=== PATIENT | female | born 1950 | race Two or more races ===

== ENCOUNTER 2025-05-21 19:34 | Emergency (ER) | payer OTHER, SELFPAY ==
[2025-05-21 19:39] VITALS: BP 173/78; PULSE 66; TEMP 36.6; O2SAT 95; BMI 21.9
[2025-05-21 19:51] VITALS: O2SAT 95
--- NOTE | 2025-05-21 19:52 | XR_ITS ---
[facility] [place] [id number] Patient Name: BREE PAIZ MRN: [id number] date: 1950 Sex: F Assigned Patient Location: ER Current Patient Location: ED.MAIN Accession/Order Number: [id number] Exam Date: 05/21/2025 19:54 Report Date: 05/22/2025 08:19 At the request of: COLLEEN NGUYEN MD Procedure: XR chest 1V Single view chest: CLINICAL HISTORY: Cough, probable COVID COMPARISON: None FINDINGS: The heart is normal in size. The lungs are clear. The pulmonary vasculature is normal. Mediastinum and hilar regions are unremarkable. No pleural effusions are seen. Visualized bones are intact. XR/XR chest 1V IMPRESSION: NO ACUTE PROCESS. Impression dictated by: Nando Duarte Jr., D.O. 05/22/2025 8:19 AM Dictation Location: [place] [id number] Electronically authenticated by: [id number] Y Date: 05/22/2025 08:19
--- NOTE | 2025-05-21 19:52 | ED.GENADUL1 ---
HPI HPI - General Adult General Chief complaint: Weakness Stated complaint: COUGHING, WEAKNESS Time Seen by Provider: 05/21/25 19:49 Source: patient Mode of arrival: walk-in Limitations: no limitations History of Present Illness HPI narrative: 75-year-old female presented to the emergency department for cough and weakness. Her was diagnosed with COVID 2 days ago and she developed symptoms yesterday. No vomiting or fever. She feels rundown. Her cough is worse at nighttime. Related Data Home Medications ?Medication ?Instructions ?Recorded ?Confirmed lisinopril 2.5 mg tablet 2.5 mg PO DAILY 05/21/25 05/21/25 pepcid OTC 1 tab .Route DAILY 05/21/25 05/21/25 Previous Rx's ?Medication ?Instructions ?Recorded nirmatrelvir 300 mg (150 mg See Rx Instructions PO .COMPLEX 05/21/25 x2)-ritonavir 100 mg tablet,dose #30 ea pack (Paxlovid) Allergies Allergy/AdvReac Type Severity Reaction Status Date / Time ibuprofen (From Motrin) AdvReac dizzy Verified 05/21/25 19:45 tetracycline AdvReac syncope Verified 05/21/25 19:45 Review of Systems ROS Narrative A ten point review of systems is negative except as noted above. PFSH PFSH Social History Little interest or pleasure in doing things: not at all Feeling down, depressed, or hopeless: not at all Exam Narrative Exam Narrative: Nurses note and vital signs reviewed and patient is not hypoxic. General:The patient appears well and in no apparent distress.Patient is resting comfortably on cart. Skin:Warm, dry, no pallor noted.There is no rash noted. Head:Normocephalic, atraumatic Eye: Normal conjunctiva, no drainage Ears, Nose, Mouth, and Throat: oral mucosa is moist. Nares patent. Cardiovascular:Regular Rate and Rhythm Respiratory:Patient is in no distress, no accessory muscle use, lungs are clear to auscultation, no wheezing, rales or rhonchi Back:non-tender GI: Soft and nontender Musculoskeletal: The patient has no evidence of calf tenderness, no pitting edema, symmetrical pulses noted bilaterally Neurological:A&O, normal speech Psychiatric:Cooperative Constitutional Vital Signs, click to edit/add: Last Vital Signs Temp 97.8 F 05/21/25 19:39 Pulse 66 05/21/25 19:39 Resp 18 05/21/25 19:53 BP 173/78 H 05/21/25 19:39 Pulse Ox 95 05/21/25 19:53 O2 Del Method Room Air 05/21/25 19:53 Course Vital Signs Vital signs: Vital Signs Temperature 97.8 F 05/21/25 19:39 Pulse Rate 66 05/21/25 19:39 Respiratory Rate 18 05/21/25 19:39 Blood Pressure 173/78 H 05/21/25 19:39 Pulse Oximetry 95 05/21/25 19:39 Oxygen Delivery Method Room Air 05/21/25 19:39 Temperature 97.8 F 05/21/25 19:39 Pulse Rate 66 05/21/25 19:39 Respiratory Rate 18 05/21/25 19:53 Blood Pressure 173/78 H 05/21/25 19:39 Pulse Oximetry 95 05/21/25 19:53 Oxygen Delivery Method Room Air 05/21/25 19:53 Medical Decision Making MDM Narrative Medical decision making narrative: The patient has COVID and is prescribed Paxlovid. She does not require admission to the hospital. Treatment diagnosis and follow-up were discussed with the patient. Differential Diagnosis Differential Diagnosis: COVID, influenza, pneumonia, viral URI Lab Data Lab results reviewed: Yes I reviewed the patient's lab results Labs: Lab Results 05/21/25 Range/Units 19:43 Influenza Type A Ag Negative Influenza Type B Ag Negative SARS-CoV-2 Ag (CV2AG) Positive A (NEGATIVE) Imaging Data Chest x-ray: My impression: No acute findings Discharge Plan Discharge Chief Complaint: Weakness Clinical Impression: COVID-19 Patient Disposition: Home, Self-Care Time of Disposition Decision: 20:03 Condition: Good Mode of Transportation: Private Vehicle Prescriptions / Home Meds: New Paxlovid 300 mg (150 mg x 2)-100 mg tablets,dose pack See Rx Instructions .ROUTE .COMPLEX Qty: 30 0RF Rx Instructions: take TWO 150 mg tablets of nirmatrelvir with ONE 100 mg tablet of ritonavir twice daily for 5 days No Action pepcid OTC 1 tab .Route DAILY lisinopril 2.5 mg tablet 2.5 mg PO DAILY Print Language: Turkish Instructions: COVID-19 (Coronavirus Disease 2019) (ED), Face Coverings (Masks) and COVID-19 (ED), How to Recover from COVID-19 at Home (ED)
[2025-05-21 19:53] VITALS: O2SAT 95
[2025-05-21 20:00] LABS: SARS-CoV-2 Ag POSITIVE (NEGATIVE)
--- OUTSIDE RECORDS SUMMARY | 2025-05-21 20:06 | XMS_ITS | Continuity of Care Document ---
Author Organization [facility]. 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) Comments:Sphincter of Oddi dysfunction Right upper quadrant pain Comments:Right upper quadran t pain Allergies and Adverse Reactions ibuprofen(Allergy) Onset: 11-Aug-2012 Reaction:SYNCOPE Tetracycline(Allergy) Onset: 11-Aug-2012 Reaction:SYNCOPE Motrin(Allergy) Tetracaine 10 MG/ML Injectab le Solution(Allergy) Medications cholecalciferol 0.025 MG Ora l Capsule;1000 UNITS ORAL DAILY Start:05-Mar-2022 Comments:1000 UNITS PO DAILY omeprazole 40 MG Delayed Rel ease Oral Capsule;40 MILLIGRAM* ORAL DAILY Start:05-Mar-2022 Comments:40 MG PO DAILY metroNIDAZOLE 500 MG Oral Ta blet;500 MILLIGRAM* ORAL Q12 Start:13-Aug-2012 Status:Discontinued Comments:500 MG PO Q12 Protonix Iv;40 MILLIGRAM* 2m inIVPUSH DAILY Start:13-Aug-2012 Status:Discontinued Comments:40 MG 2minIVPUSH DAILY Pancrease Capsule;1 EACH ORA L C MEALS Start:13-Aug-2012 Status:Discontinued Comments:1 EACH ORAL C MEALS loperamide hydrochloride 2 M G Oral Capsule;2 MILLIGRAM* ORAL Q12H PRN Start:13-Aug-2012 Status:Discontinued Comments:2 MG PO Q12H PRN Omeprazole;20 MG Oral , TK 1 C PO QD Quantity:90 Refills:2 ORAL ELIEL Comments:20 MG Oral , TK 1 C PO QD Social History Smoking Status Never smoked tobacco Recorded: 05-Mar-2022
--- OUTSIDE RECORDS SUMMARY | 2025-05-21 20:08 | XMS_ITS | Clinical Summary ---
Author Organization Formerly [facility] Address [address] [place] [address] Care Team Providers Care Sagger Soak Name Role Phone Candida Severino MD Primary Care Provider Allergies Active Allergy Reactions Criticality Noted Date Comments [place] (Diagnostic) Other Low 07/29/2024 TESTED + Ibuprofen Other,Dizziness High 10/07/2022 PASSED OUT Tetracycline Dizziness Low 10/07/2022 Medications famotidine (Pepcid) 20 MG tablet Take 1 tablet (20 mg total) by mouth 1 (one) time each day in the morning. Active lisinopril 5 MG tablet Take 1 tablet (5 mg total) by mouth 1 (one) time each day in the morning. Active Restasis 0.05 % ophthalmic emulsion Administer 1 drop into both eyes every 12 (twelve) hours. 3 Active fluorometholone (FML) 0.1 % ophthalmic suspension Administer 1 drop into the right eye in the morning and 1 drop before bedtime. 4 Active Zirgan 0.15 % ophthalmic gel solution Apply 1 drop to right eye every night. 4 Active cetirizine (ZyrTEC) 10 MG tablet Take 1 tablet (10 mg total) by mouth every night. 3 Active gabapentin (Neurontin) 300 MG capsuleIndicati ons:Neuropathic Pain Start 1 cap at bedtime for 1 week then if tolerating well go to 1 cap BID for 1 week then if tolerating well 1 cap TID 90 capsule 5 Active Active Problems Problem Noted Date Diagnosed Date Lumbar radiculopathy 01/25/2025 Gastroesophageal reflux disease 10/07/2023 10/07/2023 Primary hypertension 10/07/2023 Polyp of colon 10/07/2023 Resolved Problems Problem Noted Date Diagnosed Date Resolved Date Acute bronchitis 10/07/2022 10/07/2023 Acute cough 10/07/2022 10/07/2023 Acute rhinosinusitis 10/07/2022 024 Encounters Date Type Department Care Team Description 03/07/2025 Telephone [facility] at [address] [place] [address] Jolene Cox MD Procedure; Reschedule 03/01/2025 10:30 AM EDT Procedure Visit [facility] at [address] [place] [address] Jolene Cox MD Lumbar radiculopathy (Primary Dx); Lumbar stenosis with neurogenic claudication; Lumbar spondylosis; Degeneration of intervertebral disc of lumbar region with lower extremity pain 03/01/2025 Telephone [facility] at [address] [address] [place] [address] Jolene Cox MD from Last 3 Months Family History Medical History Relation Name Comments No Known Problems Brother No Known Problems Cousin No Known Problems Daughter Emphysema Father No Known Problems Maternal Grandfather No Known Problems Maternal Grandmother Heart disease Mother Margarita Eli Hypertension Mother Margarita Eli Stomach cancer Mother Margarita Eli No Known Problems Other No Known Problems Paternal Grandfather No Known Problems Paternal Grandmother Diabetes Sister Esperanza Eli Lymphoma Sister Esperanza Eli No Known Problems Son Relation Name Status Comments Brother Cousin Daughter Father Maternal Grandfather Maternal Grandmother Mother Margarita Eli Other Paternal Grandfather Paternal Grandmother Sister Esperanza Eli Son Social History Tobacco Use Types Packs/Day Years Used Date Smoking Tobacco: Never Smokeless Tobacco: Never Tobacco Cessation:Counseling Given: Not Answered Alcohol Use Standard Drinks/Week Comments Never 0 (1 standard drink = 0.6 oz pur e alcohol) PHQ-2 Answer Date Recorded Patient Health Questionnaire-2 Score 0 01/22/2024 [facility] Housing Answer Date Recorded Living Situation Not on file 04/03/2023 Housing Problems Not on file 04/03/2023 [facility] Safety Answer Date Recorded Threatened Not on file 04/03/2023 Insulted Not on file 04/03/2023 Physically Hurt Not on file 04/03/2023 Scream Not on file 04/03/2023 Comments No Sex and Gender Information Value Date Recorded Sex Assigned at Not on file Legal Sex Female 7:24 AM EDT Gender Identity Not on file Sexual Orientation Not on file Last Filed Vital Signs Vital Sign Reading Time Taken Comments Blood Pressure 141/73 02/02/2025 2:26 PM EDT Pulse 61 02/02/2025 2:26 PM EDT Temperature 36.6 C (97.8 F) 02/02/2025 2:26 PM EDT Respiratory Rate 16 02/02/2025 2:26 PM EDT Oxygen Saturation 100% 02/02/2025 2:26 PM EDT Inhaled Oxygen Concentration - - Weight 51.7 kg (114 lb) 03/01/2025 9:45 AM EDT Height 149.9 cm (4' 11 ) 03/01/2025 9:45 AM EDT Body Mass Index 23.03 03/01/2025 9:45 AM EDT Plan of Treatment Health Maintenance Due Date Last Done Comments CT Colonography 1950 Cologuard 1950 FIT 1950 FOBT 1950 Medicare Annual Wellness (AWV) 1950 Sigmoidoscopy 1950 DTaP/Tdap/Td Vaccines (1 - Tdap) 1970 Pneumococcal Vaccine: 50+ Years (1 of 2 - PCV) 1970 Mammogram 1991 Zoster Vaccines (1 of 2) 2001 Respiratory Syncytial Virus (RSV) 60 years and older and/or patients (1 - Risk 60-74 years 1-dose series) 2011 Depression Screening 01/21/2025 01/22/2024 COVID-19 Vaccine (1 - season) 2025 Influenza Vaccine (#1) 2025 Diabetes Screening 01/14/2026 01/14/2025, 0 11/25/2023, 11/25/2023, Additional history exists Lipid Panel 11/24/2028 11/25/2023 Colonoscopy 12/09/2033 12/10/2023, 12/04/2023 Colorectal Cancer Screening 12/09/2033 Bone Density Scan Completed 03/31/2023, 03/31/2023 HPV Vaccines Aged Out No longer eligi ble based on patient's age to complete this topic Hepatitis A Vaccines Aged Out No long er eligible based on patient's age to complete this topic Hepatitis B Vaccines Aged Out No long er eligible based on patient's age to complete this topic Meningococcal B Vaccine Aged Out No l onger eligible based on patient's age to complete this topic Meningococcal Vaccine Aged Out No emeka rosalva eligible based on patient's age to complete this topic Respiratory Syncytial Virus (RSV) <20 months Aged Out No longer eligible based on patient's age to complete this topic Medical Devices Implanted Type Area Lyric Writer Device Identifier Shelf Expiration Date Model / Serial / Lot Ortho Implants Ortho Implants Right: First Toe Procedures Procedure Name Priority Date/Time Associated Diagnosis Comments COLONOSCOPY Routine 12/10/2023 7:52 AM EDT Personal history of colonic polyps COMPREHENSIVE METABOLIC PANEL Routine 11/25/2023 12:00 AM EDT LIPID PANEL Routine 11/25/2023 12:00 AM EDT from Last 3 Months or Most Recently Relevant to Health Maintenance Results * Colonoscopy (12/10/2023 7:52 AM EDT) Anatomical Region Laterality Modality Endoscopy 12/10/2023 9:54 AM EDT Narrative 12/10/2023 10:29 AM EDT Patient Name: Antonette Connell Procedure Date No Time: 12/10/2023 Date of : 1950 Admit Type: Outpatient Age: 73 Gender: Female Attending MD: MELISSA AGUSTIN MD Instrument Name: Colonoscope Note Status: Finalized Grafts or Implants: None Providers: MELISSA AGUSTIN MD (Doctor) Indication(s): High risk colon cancer surveillance: Personal history of colonic polyps, Last colonoscopy 3 years ago Impression(s): - One 3 to 4 mm polyp in the proximal transverse colon, removed with a cold snare. Resected and retrieved. - One 6 mm polyp in the distal sigmoid colon, removed with a cold snare. Resected and retrieved. - Mild diverticulosis in the sigmoid colon. - Internal hemorrhoids. Recommendation: - Patient has a contact number available for emergencies. The signs and symptoms of potential delayed complications were discussed with the patient. Return to normal activities tomorrow. Written discharge instructions were provided to the patient. - Resume previous diet. - Continue present medications. - Await pathology results. - Repeat colonoscopy is recommended. The colonoscopy date will be determined after pathology results from today's exam become available for review. - Return to my office. Procedure: Colonoscopy Procedure: Pre-Anesthesia Assessment: - Prior to the procedure, a History and Physical was performed, and patient medications and allergies were reviewed. The patient's tolerance of previous anesthesia was also reviewed. The risks and benefits of the procedure and the sedation options and risks were discussed with the patient. All questions were answered, and informed consent was obtained. Prior Anticoagulants: The patient has taken no anticoagulant or antiplatelet agents. ASA Grade Assessment: II - A patient with mild systemic disease. After reviewing the risks and benefits, the patient was deemed in satisfactory condition to undergo the procedure. Bus Van Driver: Refer to the IntraOP nursing note. After I obtained informed consent, the scope was passed under direct vision. Throughout the procedure, the patient's blood pressure, pulse, and oxygen saturations were monitored continuously. The was introduced through the anus and advanced to the cecum, identified by appendiceal orifice and ileocecal valve. The quality of the bowel preparation was good. The ileocecal valve, appendiceal orifice, and rectum were photographed. The colonoscopy was performed without difficulty. The patient tolerated the procedure well. The quality of the bowel preparation was evaluated using the BBPS ([place] Bowel Preparation Scale) with scores of: Right Colon = 3, Transverse Colon = 3 and Left Colon = 3 (entire mucosa seen well with no residual staining, small fragments of stool or opaque liquid). The total BBPS score equals 9. Findings: Retroflexion in the right colon was performed. A 3 to 4 mm polyp was found in the proximal transverse colon. The polyp was sessile. The polyp was removed with a cold snare. Resection and retrieval were complete. A 6 mm polyp was found in the distal sigmoid colon. The polyp was sessile. The polyp was removed with a cold snare. Resection and retrieval were complete. Diverticula were found in the sigmoid colon. Internal hemorrhoids were found. The hemorrhoids were small. Estimated Blood Loss: Estimated blood loss: none. Anesthesia Type: Monitored Anesthesia Care Complications: No immediate complications. Procedure Code(s): --- Professional --- 83448, Colonoscopy, flexible; with removal of tumor(s), polyp(s), or other lesion(s) by snare technique Diagnosis Code(s): --- Professional --- Z86.010, Personal history of colonic polyps D12.3, Benign neoplasm of transverse colon (hepatic flexure or splenic flexure) D12.5, Benign neoplasm of sigmoid colon K64.8, Other hemorrhoids K57.30, Diverticulosis of large intestine without perforation or abscess without bleeding CPT copyright 2020 [employer]. All rights reserved. The codes documented in this report are preliminary and upon front end loader driver review may be revised to meet current compliance requirements. Attending Participation: I personally performed the entire procedure. MD MELISSA Garcia MD 12/10/2023 10:29:03 AM Number of Addenda: 0 Procedure Note Melissa Agustin MD - 12/10/2023 Patient Name: Antonette Connell Procedure Date No Time: 12/10/2023 Date of : 1950 Admit Type: Outpatient Age: 73 Gender: Female Attending MD: MELISSA AGUSTIN MD Instrument Name: Colonoscope Note Status: Finalized Grafts or Implants: None Providers: MELISSA AGUSTIN MD (Doctor) Indication(s): High risk colon cancer surveillance: Personal history of colonicpolyps, Last colonoscopy 3 years ago Impression(s): - One 3 to 4 mm polyp in the proximal transverse colon, removed witha cold snare. Resected and retrieved. - One 6 mm polyp in the distal sigmoid colon, removed with a coldsnare. Resected and retrieved. - Mild diverticulosis in the sigmoid colon. - Internal hemorrhoids. Recommendation: - Patient has a contact number available for emergencies. The signs and symptoms of potential delayed complications were discussed with thepatient. Return to normal activities tomorrow. Written discharge instructions were provided to thepatient. - Resume previous diet. - Continue present medications. - Await pathology results. - Repeat colonoscopy is recommended. Thecolonoscopy date will be determined after pathology resultsfrom today's exam become available for review. - Return to my office. Procedure: Colonoscopy Procedure: Pre-Anesthesia Assessment: - Prior to the procedure, a History and Physical was performed, and patient medications and allergies were reviewed. The patient'stolerance of previous anesthesia was also reviewed. The risks and benefits ofthe procedure and the sedation options and risks were discussed with the patient. All questions were answered, and informed consent wasobtained. Prior Anticoagulants: The patient has taken no anticoagulant or antiplatelet agents. ASA Grade Assessment: II - A patient with mild systemic disease. After reviewing the risks and benefits, the patient was deemed in satisfactory condition to undergo the procedure. Bus Van Driver: Refer to the IntraOP nursing note. After I obtained informed consent, the scope was passed under direct vision. Throughout the procedure, the patient's blood pressure,pulse, and oxygen saturations were monitored continuously. The wasintroduced through the anus and advanced to the cecum, identified by appendiceal orifice and ileocecal valve. The quality of the bowel preparation was good. The ileocecal valve, appendiceal orifice, and rectum were photographed. The colonoscopy was performed without difficulty. The patient tolerated the procedure well. The quality of the bowel preparation was evaluated using the BBPS ([place] Bowel Preparation Scale) with scores of: Right Colon = 3, Transverse Colon = 3 and Left Colon = 3 (entire mucosa seen well with no residual staining, small fragments of stool or opaque liquid). The total BBPS score equals9. Findings: Retroflexion in the right colon was performed. A 3 to 4 mm polyp was found in the proximal transverse colon. Thepolyp was sessile. The polyp was removed with a cold snare. Resection and retrieval were complete. A 6 mm polyp was found in the distal sigmoid colon. The polyp was sessile. The polyp was removed with a cold snare. Resection and retrieval were complete. Diverticula were found in the sigmoid colon. Internal hemorrhoids were found. The hemorrhoids were small. Estimated Blood Loss: Estimated blood loss: none. Anesthesia Type: Monitored Anesthesia Care Complications: No immediate complications. Procedure Code(s): --- Professional --- 32895, Colonoscopy, flexible; with removal of tumor(s), polyp(s), or other lesion(s) by snare technique Diagnosis Code(s): --- Professional --- Z86.010, Personal history of colonic polyps D12.3, Benign neoplasm of transverse colon (hepatic flexure or splenic flexure) D12.5, Benign neoplasm of sigmoid colon K64.8, Other hemorrhoids K57.30, Diverticulosis of large intestine without perforation or abscess without bleeding CPT copyright 2020 [employer]. All rights reserved. The codes documented in this report are preliminary and upon front end loader driver reviewmay be revised to meet current compliance requirements. Attending Participation: I personally performed the entire procedure. MD MELISSA Garcia MD 12/10/2023 10:29:03 AM Number of Addenda: 0 Melissa Agustin MD ENDOSCOPY PROCEDU RE ORDERABLES Final Result * Lipid Panel (11/25/2023 12:00 AM EDT) Cholesterol, Total 182 <200 mg/dL [facility] HDL Cholesterol 70 > OR = 50 mg/dL [facility] Triglycerides 120 <150 mg/dL [facility] LDL Cholesterol 90 mg/dL (calc) [facility] Comment: Reference range: <100 Desirable range <100 mg/dL for primary prevention; <70 mg/dL for patients with CHD or diabetic patients with > or = 2 CHD risk factors. LDL-C is now calculated using the Rufino calculation, which is a validated novel method providing better accuracy than the Friedewald equation in the estimation of LDL-C. Alli AGUILAR et al. DAVID. 2013;310(19): 2759-4697 (http://education.[employer]/faq/YGS276) Chol/HDL Ratio 2.6 <5.0 (calc) [facility] Non-HDL Cholesterol 112 <130 mg/dL (calc) [facility] Comment: For patients with diabetes plus 1 major ASCVD risk factor, treating to a non-HDL-C goal of <100 mg/dL (LDL-C of <70 mg/dL) is considered a therapeutic option. 11/25/2023 11/25/2023 10: 46 AM EDT Narrative [facility] 11/26/2023 4:31 AM EDT FASTING:YES FASTING: YES us Vonnie Woodard MD LAB BLOOD ORDERABLES Final Result [facility] [address] [place] [address] * Comprehensive Metabolic Panel (CMP) (11/25/2023 12:00 AM EDT) Pathologist [facility] Glucose 81 65 - 99 mg/dL [facility] Comment: Fasting reference interval BUN 11 7 - 25 mg/dL [facility] Creatinine 0.69 0.60 - 1.00 mg/dL [facility] eGFR 92 > OR = 60 mL/min/1. 73m2 [facility] BUN/Creatinine Ratio SEE NOTE: 6 - 22 (calc) [facility] Comment: Not Reported: BUN and Creatinine are within reference range. Sodium 139 135 - 146 mmol/L [facility] Potassium 4.9 3.5 - 5.3 mmol/L [facility] Chloride 104 98 - 110 mmol/L [facility] Carbon Dioxide 29 20 - 32 mmol/L [facility] Calcium 9.5 8.6 - 10.4 mg/dL [facility] Protein, Total 7.0 6.1 - 8.1 g/dL [facility] Albumin 4.4 3.6 - 5.1 g/dL [facility] Globulin 2.6 1.9 - 3.7 g/dL (calc) [facility] A/G Ratio 1.7 1.0 - 2.5 (calc) [facility] Bilirubin, Total 0.5 0.2 - 1.2 mg/dL [facility] Alkaline Phosphatase 74 37 - 153 U/L [facility] AST 18 10 - 35 U/L [facility] ALT 13 6 - 29 U/L [facility] 11/25/2023 11/25/2023 10: 46 AM EDT Narrative [facility] - 11/26/2023 4:31 AM EDT FASTING:YES FASTING: YES us Vonnie Woodard MD LAB BLOOD ORDERABLES Final Result [facility] [address] [place] [address] from Last 3 Months or Most Recently Relevant to Health Maintenance Insurance [employer] Care Teams Sagger Soak Relationship Specialty Start Date End Date Candida Severino MD PCP - General [employer] 12/16/23
--- OUTSIDE RECORDS SUMMARY | 2025-05-21 20:08 | XMS_ITS | Patient Health Record ---
Author Organization [facility] Billing Info Address [address] [place] [address] [place] [address] Care Team Providers Care Irish Moss Operator Name Role Phone Frances Holguin Primary Care Provider Unavailabl e Allergies Allergen (clinical drug ingredient) Drug/Non Drug Allergy documented on EMR Reaction Allergy Type Onset Date Status Motrin Unknown Drug Allergy Active tetracaine Tetracaine HCl Unknown Drug Allergy A ctive Reason For Referral No Information Medications Medication SIG (Take, Route, Fr equency, Duration) Notes Start Date End Date Status Omeprazole 20 MG TK 1 C PO QD Oral for 90 Active Social History Tobacco Use: Social History Observation Description Date Details (start date - stop date) Never Smoker NA - NA Tobacco Status: Question Answer Notes Patient is a never smoker Problems Problem Type SNOMED Code ICD Code Onset Dates Problem Status W/U Status Risk Notes Problem Right upper quadrant pain (825541100) Right upper quadrant pain (R10.11) Active confirmed Problem Mixed hyperlipidemia (715437126) Combined hyperlipidemia (E78.2) Active confirmed 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
--- OUTSIDE RECORDS SUMMARY | 2025-05-21 20:08 | XMS_ITS | Clinical Summary ---
Author Organization [facility] Address [address] [place] [address] Phone Care Team Providers Care Tab Cutting Machine Operator Name Role Phone Domenic Mcelroy MD Primary Care Provider + Social History Tobacco Use Types Packs/Day Years Used Date Smoking Tobacco: Never Assessed Caregiver Education and Work Answer Hal e Recorded Opt Out of Tobacco Outreach No 02/16 Opt Out of Tobacco Outreach No 02/16 Safety and Environment Answer Date Luis Manuel rded Opt Out of Tobacco Outreach No 02/16 Opt Out of Tobacco Outreach No 02/16 Opt Out of Tobacco Outreach No 02/16 Opt Out of Tobacco Outreach No 02/16 Caregiver Health Answer Date Recorded Opt Out of Tobacco Outreach No 02/16 Opt Out of Tobacco Outreach No 02/16 Opt Out of Tobacco Outreach No 02/16 Child Education Answer Date Recorded Opt Out of Tobacco Outreach No 02/16 Opt Out of Tobacco Outreach No 02/16 Opt Out of Tobacco Outreach No 02/16 Adolescent Substance Use Answer Date Re corded Opt Out of Tobacco Outreach No 02/16 Opt Out of Tobacco Outreach No 02/16 Opt Out of Tobacco Outreach No 02/16 [place] Short Social Needs Screening - Social Connect ion Answer Date Recorded Would you like help with any of the following needs: food, medicine/medical supplies, transportation, loneliness, housing or utilities? Not on file 01/03/2024 [place] IP CRAFFT Adolescent Substance Use Answer Date Recorded CRAFFT Screening: Is the pat ient 12 years or older and able to complete Substance Abuse Screening? Not on file 01/03/2024 Last CRAFFT Score: Flowsheet Data Not on file 01/03/2024 Comments Unknown Sex and Gender Information Value Date Recorded Sex Assigned at Not on file Legal Sex Female 11:18 AM EDT Gender Identity Not on file Sexual Orientation Not on file Last Filed Vital Signs Vital Sign Reading Time Taken Comments Blood Pressure - - Pulse - - Temperature - - Respiratory Rate - - Oxygen Saturation - - Inhaled Oxygen Concentration - - Weight 53.5 kg (117 lb 15.1 oz) 008 10:00 AM EDT Height - - Body Mass Index - - Plan of Treatment Health Maintenance Due Date Last Done Comments CT Colonography 1951 FIT-DNA 1951 FIT 1951 FOBT 1950 Hepatitis C Screening 1950 Sigmoidoscopy 1950 COVID-19 Vaccine (#1) 02/26/1956 Depression Screening 1963 DTaP,Tdap,and Td Vaccines (1 - Tdap) 1970 Zoster Vaccines (1 of 2) 1970 Colonoscopy 02/26/1996 [place] Colorectal Cancer Screening 02/26/1996 Pneumococcal Vaccine: 50+ Ye ars (1 of 1 - PCV) 2001 RSV women or 60 yea rs and older (1 - Risk 60-74 years 1-dose series) 2011 Advance Care Planning 02/26/2016 Fall Risk Screening 02/26/2016 Influenza Vaccine (#1) 2025 Osteoporosis Screening Completed 03/31/2023 HIB Vaccines Aged Out No longer eligi ble based on patient's age to complete this topic HPV Vaccines Aged Out No longer eligi ble based on patient's age to complete this topic Hepatitis A Vaccines Aged Out No long er eligible based on patient's age to complete this topic Hepatitis B Vaccines Aged Out No long er eligible based on patient's age to complete this topic IPV Vaccines Aged Out No longer eligi ble based on patient's age to complete this topic Meningococcal ACWY Aged Out No longer eligible based on patient's age to complete this topic Pneumococcal Vaccine: Pediat rics (0 to 5 Years) and At-Risk Patients (6 to 49 Years) Aged Out No longer eligi ble based on patient's age to complete this topic RSV patients under 20 months Aged Out No longer eligible based on patient's age to complete this topic Procedures Procedure Name Priority Date/Time Associated Diagnosis Comments DEXA BONE DENSITY AXIAL SKELETON Routine 03/31/2023 10:32 AM EDT Encounter for screening for osteoporosis from Last 3 Months or Most Recently Relevant to Health Maintenance Results * DEXA Bone Density Axial Skeleton (03/31/2023 10:32 AM EDT) Anatomical Region Laterality Modality Wrist, Hip, L-spine N/A Radiographic Imaging Impressions 03/31/2023 3:56 PM EDT Osteopenia. Dictated on: 03/31/2023 3:55 PM Signed by: Eric Albrecht M.D. 03/31/2023 3:56 PM Narrative 03/31/2023 3:56 PM EDT PROCEDURE: DEXA BONE DENSITY AXIAL SKELETON INDICATION: Z13.820 encounter for screening for osteoporosis. COMPARISON: None. TECHNIQUE: [place] DEXA was performed. FINDINGS: LUMBAR SPINE L1-L4: Bone Mineral Density: 1.006 gm/cm sq^2. T-score: -1.5 Z-score: 0.2 LEFT FEMUR: TOTAL Bone Mineral Density: 0.777 gm/cm sq^2. T-score: -1.8 Z-score: -0.3 LEFT FEMUR: NECK Bone Mineral Density: 0.807 gm/cm sq^2. T-score: -1.7 Z-score: 0.1 FRAX 10-year Probability of Fracture Based on a femoral neck BMD: Left femur Major osteoporotic fracture: 10% Hip fracture: 1.9% Procedure Note Eric Albrecht MD - 03/31/2023 PROCEDURE: DEXA BONE DENSITY AXIAL SKELETON INDICATION: Z13.820 encounter for screening for osteoporosis. COMPARISON: None. TECHNIQUE: [place] DEXA was performed. FINDINGS: LUMBAR SPINE L1-L4: Bone Mineral Density: 1.006 gm/cm sq^2. T-score: -1.5 Z-score: 0.2 LEFT FEMUR: TOTAL Bone Mineral Density: 0.777 gm/cm sq^2. T-score: -1.8 Z-score: -0.3 LEFT FEMUR: NECK Bone Mineral Density: 0.807 gm/cm sq^2. T-score: -1.7 Z-score: 0.1 FRAX 10-year Probability of Fracture Based on a femoral neck BMD: Left femur Major osteoporotic fracture: 10% Hip fracture: 1.9% IMPRESSION: Osteopenia. Dictated on: 03/31/2023 3:55 PM Signed by: Eric Albrecht M.D. 03/31/2023 3:56 PM Domenic Mcelroy MD IMG DXA PROCEDURES Final Result from Last 3 Months or Most Recently Relevant to Health Maintenance Care Teams Tab Cutting Machine Operator Relationship Specialty Start Date End Date Domenic Mcelroy MD [address] [place] [address] PCP - General Dryer And Washer Mechanic 03/13/23
--- OUTSIDE RECORDS SUMMARY | 2025-05-21 20:08 | XMS_ITS | Patient Health Record ---
Author Organization [facility] Address [address] [address] Care Team Providers Care Music Publisher Name Role Phone Domenic Mcelroy Primary Care Provider Andrea Johnson Unavailable [phone] Allergies Allergen (clinical drug ingredient) Drug/Non Drug Allergy documented on EMR Reaction Allergy Type Onset Date Status tetracycline Tetracycline (uncoded) Unknown Allergy Active motrin Unknown Drug Allergy Active Reason For Referral No Information Medications Medication SIG (Take, Route, Frequency, Duration) Notes Start Date End Date Status NexIUM 0 Source DrugName : Nexium; Prescribed by : SIG : Take 1 capsule by mouth every morning 02/10/2014 Not-Taking/NM N Pepcid 20 MG Tablet 1 tablet at bedtime as needed Orally Once a day Active Social History Tobacco Use: Social History Observation Description Date Details (start date - stop date) Never Smoker NA - NA Social History Drugs/Alcohol(Archived) Social Info Question Answer Notes Alcohol Screen (Audit-C) Did you have a drink containing alcohol in the past year? No Points 0 Interpretation Negative Drugs Have you used drugs other than those for medical reasons in the past 12 months? No Caffeine Intake: none sometimes Tobacco Use: Social Info Question Answer Notes Tobacco Use/Smoking (Archived) Are you a? nonsmoker Additional Findings: Tobacco Non-User Current no n-smoker Additional Details Category Social Info Options Details Migrated Social History Migrated Social History Alcohol History : None , Number of Children : 4 , Occupation History : retired , Tobacco History : Never Smoked Social History (Alcohol):no (Blood transfusions):no (Caffeine):no (Smoking):no Are you a: nonsmoker (Tattoos):no Problems Problem Type SNOMED Code ICD Code Onset Dates Problem Status W/U Status Risk Notes Problem Gastro-esophageal reflux disease with esophagitis (027188007) Gastro-esophageal reflux disease with esophagitis (K21.0) Active confirmed Problem Gastric hemorrhage due to chronic superficial gastritis (7312328818285485) 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) Active confirmed Problem 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 Problem Spasm of sphincter of Oddi (93778661) 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 Problem Gastroesophageal reflux disease (141176487) GERD, reflux (K21.9) 2013 Active confirmed [id number], reflux Problem Chronic gastritis (1933388) Chronic gastritis (K29.50) Active confirmed Per bx on 04/2023 Problem Gastroesophageal reflux disease (970587946) GERD (K21.9) Active confirmed Problem Gastroesophageal reflux disease (190994857) 1. 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 Plan Of Treatment Pending Test Test Name Order Date Lipase, Serum 01/19/2019 Hepatic Function Panel (7) 01/19/2019 EGD 01/17/2011 EGD 10/30/2011 EGD 11/26/2018 Insurance Providers Payer Name Payer Address Payer Phone Subscriber Number Group Number Insured Name Patient Relationship to Insured Coverage Start Date Coverage End Date [facility] [address] [address] [place], [place] [id number] [phone] [id number] BREE PAIZ Self - patient is the insured 2 Medical (General) History Medical History History ICD Code Problems: Acid Reflux Hemorrhoids Surgical History Surgery Date(Month/Year) Hemorrhoidectomy Hemorrhoidectomy 1976 Hysterectomy 2009 colonoscopy Hysterectomy Hospitalization History Reason Date(Month/Year) For the above reasons
== END 2025-05-21 20:21 | disposition home or self-care (01) ==
LOC: ER 20:04
PROVIDERS: Emergency Provider Emergency Medicine
DX: U07.1 COVID-19 (principal)
CPT/HCPCS: 71045; 87804; 87811; 99284